=== PATIENT | male | born 1980 | race Caucasian/White ===

== ENCOUNTER 2021-08-02 21:14 | Emergency (ER) | payer OTHER ==
[~2021-08-02] VITALS: Ht 180.3 cm; Wt 95.5 kg
[2021-08-02] MEDS ORDERED: MethylPREDNISolone SOD SUCC 125 MG/2 ML VIAL IVP ONE (21:30)
[2021-08-02] MEDS ORDERED: SODIUM CHLORIDE 0.9% 1,000 ML IV ONE (21:30)
[2021-08-02] MEDS ORDERED: EPINEPHrine 1:1,000 [1 MG/ML] AMP SQ ONE (21:30)
[2021-08-02] MEDS ORDERED: DiphenhydrAMINE HCL 50 MG/ML VIAL IVP ONE (21:30)
[2021-08-02] MEDS ORDERED: FAMOTIDINE 10 MG/ML 2 ML VIAL IVP ONE (21:30)
[2021-08-02] MEDS ORDERED: ONDANSETRON HCL 4 MG/2 ML VIAL IVP ONE (22:15)
[2021-08-03 00:55] VITALS: BP 100/60
== END 2021-08-03 03:13 | disposition home or self-care (01) ==
LOC: EMS 21:17
DX: T78.2XXA Anaphylactic shock, unspecified, initial encounter (principal); T78.1XXA Other adverse food reactions, not elsewhere classified, initial encounter; X58.XXXA Exposure to other specified factors, initial encounter
CPT/HCPCS: 96361; 96372; 96374; 96375; 99291; J0171; J1200; J2405; J2930; J3490; J7030